=== PATIENT | male | born 1970 | race Caucasian/White ===

== ENCOUNTER 2022-07-31 08:03 | Outpatient (CLI) | payer SELFPAY | END 2022-07-31 08:04 | disposition home or self-care (01) | LOC: CSHWCC 08:03 | PROVIDERS: ATTEND Nurse Practitioner Family | DX: T81.89XD Other complications of procedures, not elsewhere classified, subsequent encounter (principal) | CPT/HCPCS: 97605; 99203; G0463 ==

== ENCOUNTER 2022-08-04 09:23 | Outpatient (CLI) | payer SELFPAY | END 2022-08-04 09:24 | disposition home or self-care (01) | LOC: CSHWCC 09:23 | PROVIDERS: ATTEND Nurse Practitioner Family | DX: T81.89XD Other complications of procedures, not elsewhere classified, subsequent encounter (principal) | CPT/HCPCS: 97605 ==

== ENCOUNTER 2022-08-12 09:05 | Outpatient (CLI) | payer SELFPAY | END 2022-08-12 09:06 | disposition home or self-care (01) | LOC: CSHWCC 09:05 | PROVIDERS: ATTEND Nurse Practitioner Family | DX: T81.89XD Other complications of procedures, not elsewhere classified, subsequent encounter (principal) | CPT/HCPCS: 99212; G0463 ==

== ENCOUNTER 2022-08-15 08:30 | Outpatient (CLI) | payer OTHER | END 2022-08-15 08:31 | disposition home or self-care (01) | LOC: CSHWCC 08:30 | PROVIDERS: ATTEND Nurse Practitioner Family | DX: T81.89XD Other complications of procedures, not elsewhere classified, subsequent encounter (principal) | CPT/HCPCS: 99213; G0463 ==

== ENCOUNTER 2022-08-19 13:17 | Outpatient (CLI) | payer OTHER | END 2022-08-19 13:18 | disposition home or self-care (01) | LOC: CSHWCC 13:17 | PROVIDERS: ATTEND Nurse Practitioner Family | DX: T81.89XD Other complications of procedures, not elsewhere classified, subsequent encounter (principal) | CPT/HCPCS: 99212; G0463 ==

== ENCOUNTER 2022-11-10 12:46 | Outpatient (CLI) | payer MEDICAID | END 2022-11-10 12:47 | disposition home or self-care (01) | LOC: CSHWCC 12:46 | PROVIDERS: ATTEND Nurse Practitioner Family | DX: T81.89XS Other complications of procedures, not elsewhere classified, sequela (principal) | CPT/HCPCS: 99203; G0463 ==

== ENCOUNTER 2022-11-13 12:49 | Outpatient (CLI) | payer MEDICAID | END 2022-11-13 12:50 | disposition home or self-care (01) | LOC: CSHWCC 12:49 | PROVIDERS: ATTEND Nurse Practitioner Family | DX: S21.209D Unspecified open wound of unspecified back wall of thorax without penetration into thoracic cavity, subsequent encounter (principal) | CPT/HCPCS: 97605 ==

== ENCOUNTER 2022-11-17 13:03 | Outpatient (CLI) | payer MEDICAID | END 2022-11-17 13:04 | disposition home or self-care (01) | LOC: CSHWCC 13:03 | PROVIDERS: ATTEND Nurse Practitioner Family | DX: S21.209D Unspecified open wound of unspecified back wall of thorax without penetration into thoracic cavity, subsequent encounter (principal) | CPT/HCPCS: 97605 ==

== ENCOUNTER 2022-11-20 13:10 | Outpatient (CLI) | payer MEDICAID | END 2022-11-24 13:02 | disposition home or self-care (01) | LOC: CSHWCC 13:10 | PROVIDERS: ATTEND Nurse Practitioner Family | DX: S21.209D Unspecified open wound of unspecified back wall of thorax without penetration into thoracic cavity, subsequent encounter (principal) | CPT/HCPCS: 97605 ==

== ENCOUNTER 2022-11-24 15:36 | Outpatient (CLI) | payer MEDICAID | END 2022-11-24 15:40 | disposition home or self-care (01) | LOC: CSHWCC 15:36 | PROVIDERS: ATTEND Nurse Practitioner Family | DX: S21.209D Unspecified open wound of unspecified back wall of thorax without penetration into thoracic cavity, subsequent encounter (principal) | CPT/HCPCS: 97607 ==

== ENCOUNTER 2022-11-27 10:02 | Outpatient (CLI) | payer MEDICAID | END 2022-11-27 10:03 | disposition home or self-care (01) | LOC: CSHWCC 10:02 | PROVIDERS: ATTEND Nurse Practitioner Family | DX: S24.109D Unspecified injury at unspecified level of thoracic spinal cord, subsequent encounter (principal) | CPT/HCPCS: 99212; G0463 ==

== ENCOUNTER 2022-12-08 10:06 | Outpatient (CLI) | payer MEDICAID | END 2022-12-08 10:07 | disposition home or self-care (01) | LOC: CSHWCC 10:06 | PROVIDERS: ATTEND Nurse Practitioner Family | DX: S21.209D Unspecified open wound of unspecified back wall of thorax without penetration into thoracic cavity, subsequent encounter (principal) | CPT/HCPCS: 97607 ==

== ENCOUNTER 2022-12-11 10:11 | Outpatient (CLI) | payer MEDICAID | END 2022-12-11 10:12 | disposition home or self-care (01) | LOC: CSHWCC 10:11 | PROVIDERS: ATTEND Nurse Practitioner Family | DX: S21.209D Unspecified open wound of unspecified back wall of thorax without penetration into thoracic cavity, subsequent encounter (principal) ==

== ENCOUNTER 2022-12-15 13:43 | Outpatient (CLI) | payer MEDICAID | END 2022-12-15 13:44 | disposition home or self-care (01) | LOC: CSHWCC 13:43 | PROVIDERS: ATTEND Nurse Practitioner Family | DX: S21.209D Unspecified open wound of unspecified back wall of thorax without penetration into thoracic cavity, subsequent encounter (principal) | CPT/HCPCS: 97607 ==

== ENCOUNTER 2022-12-18 10:54 | Outpatient (CLI) | payer MEDICAID | END 2022-12-18 10:55 | disposition home or self-care (01) | LOC: CSHWCC 10:54 | PROVIDERS: ATTEND Nurse Practitioner Family | DX: S21.209D Unspecified open wound of unspecified back wall of thorax without penetration into thoracic cavity, subsequent encounter (principal) | CPT/HCPCS: 97607 ==

== ENCOUNTER 2022-12-22 10:24 | Outpatient (CLI) | payer MEDICAID | END 2022-12-22 10:25 | disposition home or self-care (01) | LOC: CSHWCC 10:24 | PROVIDERS: ATTEND Nurse Practitioner Family | DX: S21.209D Unspecified open wound of unspecified back wall of thorax without penetration into thoracic cavity, subsequent encounter (principal) ==

== ENCOUNTER 2022-12-26 12:44 | Outpatient (CLI) | payer MEDICAID | END 2022-12-26 12:45 | disposition home or self-care (01) | LOC: CSHWCC 12:44 | PROVIDERS: ATTEND Nurse Practitioner Family | DX: S21.209D Unspecified open wound of unspecified back wall of thorax without penetration into thoracic cavity, subsequent encounter (principal) | CPT/HCPCS: 97607 ==

== ENCOUNTER 2023-01-02 10:12 | Outpatient (CLI) | payer MEDICAID | END 2023-01-02 10:13 | disposition home or self-care (01) | LOC: CSHWCC 10:12 | PROVIDERS: ATTEND Nurse Practitioner Family | DX: S21.209D Unspecified open wound of unspecified back wall of thorax without penetration into thoracic cavity, subsequent encounter (principal) ==

== ENCOUNTER 2023-01-09 10:08 | Outpatient (CLI) | payer MEDICAID | END 2023-01-09 10:09 | disposition home or self-care (01) | LOC: CSHWCC 10:08 | PROVIDERS: ATTEND Nurse Practitioner Family | DX: S21.209D Unspecified open wound of unspecified back wall of thorax without penetration into thoracic cavity, subsequent encounter (principal) | CPT/HCPCS: 99212; G0463 ==